=== PATIENT | male | born 1965 | race Caucasian/White ===

== ENCOUNTER 2017-06-07 15:56 | Emergency (ER) | payer OTHER ==
[~2017-06-07] VITALS: Ht 165.1 cm; Wt 75.5 kg
[~2017-06-07 15:56] MED LIST: ABILIFY15 MG PO; CYMBALTA60 MG PO; Cymbalta PO; KLONOPIN0.5 M1 PO; MOTRIN800 MG PO; PERCOCET 5/31 TABLET PO
[2017-06-07 15:59] VITALS: BP 139/85
== END 2017-06-07 19:00 | disposition left against medical advice (07) ==
LOC: EME 15:56
DX: R45.851 Suicidal ideations (principal); Z53.21 Procedure and treatment not carried out due to patient leaving prior to being seen by health care provider

== ENCOUNTER 2017-06-08 08:53 | Inpatient (IN) | payer OTHER ==
[~2017-06-08] VITALS: Ht 167.6 cm; Wt 74.5 kg
[2017-06-08 10:41] LABS: HEMATOCRIT 42.1 % (38.0-50.0); MCH 29.7 PG (29.0-34.0); MCV 87.5 FL (86-99); MEAN PLAT.VOLUME 10.9 uM^3 (9.0-12.4); PLATELET COUNT 165 K/uL (156-360); RBC DIS.WIDTH-CV 12.7 % (11.8-14.6); RBC DIS.WIDTH-SD 41.1 % (39-53); RED BLOOD COUNT 4.81 M/uL (4.00-5.50); WHITE BLOOD COUNT 6.3 K/uL (4.1-10.2)
[2017-06-08 10:50] LABS: CHLORIDE 108 mEq/L (99-109); POTASSIUM 4.1 mEq/L (3.7-5.4); SODIUM 141 mEq/L (136-147)
[2017-06-08 10:52] LABS: GLUCOSE 114 mg/dL (70-99)
[2017-06-08 10:53] LABS: ANION GAP 10 MEQ/L (2-14)
[2017-06-08 10:56] LABS: GFR ESTIMATE (CALCULATED) > 59 mL/min/
[2017-06-08 10:57] LABS: UREA NITROGEN (BUN) 18 mg/dL (9-23)
[2017-06-08 11:03] LABS: ADD MIUA? YES; BILIRUBIN NEGATIVE; BLOOD NEGATIVE; COLOR YELLOW ((YELLOW)); GLUCOSE (STRIP) NEGATIVE; KETONES NEGATIVE; LEUKOCYTES TRACE; NITRITE NEGATIVE; PROTEIN (STRIP) NEGATIVE; SPECIFIC GRAVITY 1.012 (1.000-1.030); UROBILINOGEN 0.2 MG/DL (0.2-1.0)
[2017-06-08 11:14] LABS: AMPHETAMINE NEGATIVE (500 ng/mL); BACTERIA RARE /HPF; BARBITURATES NEGATIVE (200 ng/mL); BENZODIAZEPINES PRESUMPTIVE POSITIVE (150 ng/mL); COCAINE PRESUMPTIVE POSITIVE (150 ng/mL); EPITHELIAL CELLS RARE /HPF; HYALINE CASTS 0-5 /LPF; INTERNAL CONTROLS VALID? YES; METHADONE NEGATIVE (200 ng/mL); METHAMPHETAMINE NEGATIVE (500 ng/mL); MUCUS 1+ /LPF; OPIATES (MORPHINE) NEGATIVE (100 ng/mL); OXYCODONE NEGATIVE (100 ng/mL); PHENCYCLIDINE NEGATIVE (25 ng/mL); PROPOXYPHENE NEGATIVE (300 ng/mL); RED BLOOD CELLS 0-5 /HPF (0-5); THC CANNABINOIDS NEGATIVE (50 ng/mL); TRICYCLIC ANTIDEPRESSANTS NEGATIVE (300 ng/mL); UCUL ADDED? NO; WHITE BLOOD CELLS 0-5 /HPF (0-5)
[2017-06-08 11:15] LABS: ADD MEDTOX COMMENT Y
[2017-06-08 11:26] VITALS: BP 148/61
[2017-06-08 11:58] LABS: BENZODIAZEPINES QUANT VALUE 0 NG/ML; BENZODIAZEPINES, URINE SCREEN Negative (200 ng/mL)
[2017-06-08 15:34] VITALS: BP 104/63
[2017-06-09 07:52] VITALS: BP 103/51
[2017-06-09 15:44] VITALS: BP 103/58
[2017-06-10 07:24] VITALS: BP 125/75
[2017-06-10] MEDS ORDERED: BUPROPION XL300 MG PO (09:00)
[2017-06-10] MEDS ORDERED: GABAPENTIN100 MG PO (09:00)
== END 2017-06-10 10:21 | disposition home or self-care (01) | DRG 885 ==
LOC: EME 08:53 → EDOF 09:52 → 1WEST 09:52
PROVIDERS: Emergency Medicine
DX: F32.3 Major depressive disorder, single episode, severe with psychotic features (principal); R45.851 Suicidal ideations; F60.9 Personality disorder, unspecified; F11.20 Opioid dependence, uncomplicated; F17.200 Nicotine dependence, unspecified, uncomplicated; Z59.0 Homelessness
CPT/HCPCS: 80048; 81003; 84999; 85027; 90839; 99281; 99285; Q0177

== ENCOUNTER 2017-06-16 14:22 | Emergency (ER) | payer OTHER ==
[~2017-06-16] VITALS: Ht 167.6 cm; Wt 74.5 kg
[~2017-06-16 14:22] MED LIST changes: +BUPROPION XL300 MG PO; +GABAPENTIN100 MG PO
[2017-06-16 17:58] VITALS: BP 131/79
== END 2017-06-16 18:06 | disposition home or self-care (01) ==
LOC: EME 14:22
DX: F32.9 Major depressive disorder, single episode, unspecified (principal); F60.9 Personality disorder, unspecified; F11.20 Opioid dependence, uncomplicated; F17.200 Nicotine dependence, unspecified, uncomplicated
CPT/HCPCS: 90839; 99281; 99285; G0480

== ENCOUNTER 2017-06-17 08:26 | Emergency (ER) | payer OTHER ==
[~2017-06-17] VITALS: Ht 167.6 cm; Wt 74.0 kg
[2017-06-17 08:34] VITALS: BP 126/96
[2017-06-17 09:21] LABS: HEMATOCRIT 44.8 % (38.0-50.0); MCHC 34.4 G/DL (30.0-36.0); MCV 87.2 FL (86-99); MEAN PLAT.VOLUME 10.1 uM^3 (9.0-12.4); PLATELET COUNT 205 K/uL (156-360); RBC DIS.WIDTH-CV 12.5 % (11.8-14.6); RBC DIS.WIDTH-SD 39.9 % (39-53); RED BLOOD COUNT 5.14 M/uL (4.00-5.50); WHITE BLOOD COUNT 7.6 K/uL (4.1-10.2)
[2017-06-17 09:30] LABS: CHLORIDE 106 mEq/L (99-109); SODIUM 141 mEq/L (136-147)
[2017-06-17 09:33] LABS: GLUCOSE 88 mg/dL (70-99)
[2017-06-17 09:34] LABS: ANION GAP 12 MEQ/L (2-14); TOTAL BILIRUBIN 0.6 mg/dL (0.0-1.0)
[2017-06-17 09:35] LABS: SERUM ETHYL ALCOHOL < 10 mg/dL
[2017-06-17 09:36] LABS: ALKALINE PHOSPHATASE 99 IU/L (3-129); GFR ESTIMATE (CALCULATED) > 59 mL/min/
[2017-06-17 09:37] LABS: UREA NITROGEN (BUN) 13 mg/dL (9-23)
== END 2017-06-17 12:43 | disposition home or self-care (01) ==
LOC: EME 08:26
PROVIDERS: Emergency Medicine
DX: R10.9 Unspecified abdominal pain (principal); F20.9 Schizophrenia, unspecified; F17.200 Nicotine dependence, unspecified, uncomplicated
CPT/HCPCS: 80053; 85027; 99281; 99284; G0480